=== PATIENT | female | born 1990 | race Caucasian/White ===

== ENCOUNTER 2022-04-12 15:38 | Outpatient (CLI) | payer OTHER, SELFPAY ==
--- NOTE | 2022-04-12 16:00 | CRLHL7_ITS ---
For Patients: As a result of the Century Cures Act, medical imaging exams and procedure reports are released immediately into your electronic medical record. You may view this report before your referring provider. If you have questions, please contact your health care provider. INDICATION: Dating and viability. LMP 02/12/2022. COMPARISON: None. TECHNIQUE: Real-time tavarez-scale imaging of the pelvis was performed. FINDINGS: Sonographic imaging demonstrates a single living intrauterine gestation. The embryo has a regular cardiac rate measuring 178 beats per minute. The embryo`s crown-rump length measurement of 2.4 cm corresponds to a gestational age of 9 weeks 1 day with a sonographic due date of 11/14/2022. There is a normal-appearing yolk sac. There is a developing placenta. No evidence of a perigestational hemorrhage. section scar in the lower uterine segment. The cervix appears closed. The right ovary measures 3.2 x 1.8 x 2.1 cm and the left ovary measures 3.8 x 2.5 x 3.3 cm. There is a 2.0 cm hypoechoic lesion in the right ovary which likely represents a corpus luteum. There is a 3.0 cm simple appearing cyst in the left ovary. No free fluid in the cul-de-sac. IMPRESSION: 1. Single living intrauterine gestation with crown rump length 2.4 cm which corresponds to a gestational age of 9 weeks 1 day with a sonographic due date of 11/14/2022. 2. The clinical gestational age by LMP is 8 weeks 3 days. 3. Corpus luteum in the right ovary and 3.0 cm simple cyst in the left ovary. Dictated by Gisele Guajardo MD @ 04/12/2022 6:04:41 PM (Electronically Signed)
[2022-04-12 18:21] LABS: Hemoglobin A1C* 5.1 % (0-5.6)
[2022-04-12 20:22] LABS: Free T4 Free Thyroxine* 1.01 ng/dL (0.70-1.85)
[2022-04-12 20:36] LABS: Hepatitis B Surface Antigen* Negative (Negative)
[2022-04-12 21:58] LABS: HIV 1/2/P24 Combo Screen* Negative (Negative)
[2022-04-12 22:06] LABS: Hepatitis C Virus Antibody* Negative (Negative)
[2022-04-14 10:14] LABS: Rapid Plasma Reagin (RPR) Non Reactive (Non Reactive)
[2022-04-14 16:19] LABS: Varicella-Zoster Virus Ab, IgG 873.7 IV
[2022-04-14 16:20] LABS: Rubella Antibody IgG 42.5 IU/mL
== END 2022-04-12 15:39 | disposition home or self-care (01) ==
PROVIDERS: PCP Physician Assistant Medical; Visit Provider Physician Assistant
DX: Z34.91 Encounter for supervision of normal pregnancy, unspecified, first trimester (principal); O34.81 Maternal care for other abnormalities of pelvic organs, first trimester; N83.11 Corpus luteum cyst of right ovary; Z3A.09 9 weeks gestation of pregnancy
CPT/HCPCS: 36415; 76817; 83036; 84439; 84443; 86592; 86703; 86762; 86787; 86803; 86850; 86900; 86901; 87086; 87340; 87491; 87591

== ENCOUNTER 2022-04-12 17:49 | Outpatient (CLI) | payer OTHER, SELFPAY | END 2022-04-12 17:50 | disposition home or self-care (01) | LOC: NFLDREF 04-22 08:35 | PROVIDERS: PCP Physician Assistant Medical; Visit Provider Physician Assistant | DX: Z34.81 Encounter for supervision of other normal pregnancy, first trimester (principal); Z3A.08 8 weeks gestation of pregnancy | CPT/HCPCS: 87491; 87591 ==

== ENCOUNTER 2022-06-03 13:13 | Outpatient (CLI) | payer OTHER, SELFPAY ==
[2022-06-08 08:44] LABS: Dating LMP CONF by US; Family Hx Neural Tube Defect No; Insulin Req Maternal Diabetes No; Maternal Age At Delivery 31.7 yr; Maternal Race Nonblack; Maternal Screen Interpretation Screen Neg; Maternal Weight 225.0 lbs.; MoM for AFP 1.31; Number of Fetuses Singleton; Patient's AFP 33 ng/mL; Smoking No
== END 2022-06-03 13:14 | disposition home or self-care (01) ==
PROVIDERS: PCP Physician Assistant Medical; Visit Provider Obstetrics & Gynecology
DX: Z34.92 Encounter for supervision of normal pregnancy, unspecified, second trimester (principal); Z3A.15 15 weeks gestation of pregnancy
CPT/HCPCS: 81511

== ENCOUNTER 2022-07-06 13:45 | Outpatient (CLI) | payer OTHER, SELFPAY ==
--- NOTE | 2022-07-06 14:00 | CRLHL7_ITS ---
For Patients: As a result of the Century Cures Act, medical imaging exams and procedure reports are released immediately into your electronic medical record. You may view this report before your referring provider. If you have questions, please contact your health care provider. INDICATION: Evaluate anatomy. COMPARISON: 04/12/2022 TECHNIQUE: Real time tavarez scale imaging of the fetus was performed as well as color Doppler analysis of the umbilical vessels. FINDINGS: Sonographic imaging demonstrates a single living intrauterine gestation. Fetus demonstrates a regular cardiac rate of 144 beats per minute. Fetus has a vertex position. The placenta lies anteriorly. On transvaginal imaging, the placental edge is located 6 millimeters from the internal cervical os. Amniotic fluid volume appears normal. Single deepest vertical pocket: 7.7 cm. The cervix is closed and measures 3.8 cm in length. The composite ultrasound gestational age is calculated at 20 weeks 6 days with an estimated sonographic due date of 11/17/2022. The estimated weight is 415 grams which lies at the 84th %. The following biometric measurements were obtained: Biparietal diameter: 4.7 cm/20 weeks 1 day 29th% Head circumference: 18.1 cm/20 weeks 4 days 38th% Abdominal circumference: 17.4 cm/22 weeks 2 days 91st% Femur length: 3.3 cm/20 weeks 3 days 35th% The HC/AC ratio measures: 1.04 range (1.06-1.25) On anatomic survey, there is a normal appearance of the cerebral ventricles, cavum septi pellucidi, cisterna magna and cerebellum. The nose, lips, and facial profile appear normal. The cervical, thoracic and lumbar spine are well visualized and appear normal. There is a normal four-chamber heart view and the left and right ventricular outflow tracts appear normal. The diaphragm and stomach appear normal. The kidneys and bladder also appear normal. There is a normal three-vessel cord and there is an eccentric cord insertion site located 3.0 cm from the placental edge. The four extremities appear normal. IMPRESSION: Concordant of clinical and sonographic dating. No intrinsic abnormalities noted on anatomic survey. Low lying anterior placenta with the placental edge located 6 millimeters from the internal cervical os. Dictated by Maxwell Puri MD @ 07/08/2022 8:38:11 AM (Electronically Signed)
== END 2022-07-06 13:46 | disposition home or self-care (01) ==
LOC: US 13:46
PROVIDERS: PCP Physician Assistant Medical; Visit Provider Obstetrics & Gynecology
DX: Z34.92 Encounter for supervision of normal pregnancy, unspecified, second trimester (principal); Z3A.20 20 weeks gestation of pregnancy
CPT/HCPCS: 76805; 76817

== ENCOUNTER 2022-08-29 09:33 | Outpatient (CLI) | payer OTHER, MEDICAID, SELFPAY ==
--- NOTE | 2022-08-29 09:45 | CRLHL7_ITS ---
For Patients: As a result of the Century Cures Act, medical imaging exams and procedure reports are released immediately into your electronic medical record. You may view this report before your referring provider. If you have questions, please contact your health care provider. INDICATION: f/u low-lying placenta COMPARISON: 07/06/2022 TECHNIQUE: Real time tavarez scale imaging of the fetus was performed. FINDINGS: Sonographic imaging demonstrates a single living intrauterine gestation. Fetus demonstrates a regular cardiac rate of 134 beats per minute. Fetus has a vertex position. The placenta lies anteriorly without evidence of placenta previa. The edge of the placenta is located 9.0 cm from the internal cervical os. Amniotic fluid volume appears normal and there is a single deepest vertical pocket: 5.6 cm. The cervix is closed and measures 3.7 cm. IMPRESSION: Anterior placenta edge is located 9.0 cm from the internal cervical os. Dictated by Maxwell Puri MD @ 08/29/2022 10:24:20 AM (Electronically Signed)
== END 2022-08-29 09:34 | disposition home or self-care (01) ==
PROVIDERS: PCP Physician Assistant Medical; Visit Provider Advanced Practice Midwife
DX: O44.43 Low lying placenta NOS or without hemorrhage, third trimester (principal)
CPT/HCPCS: 76816; 76817; 86592

== ENCOUNTER 2022-09-23 13:50 | Outpatient (CLI) | payer OTHER, MEDICAID, SELFPAY ==
[2022-09-23 16:44] LABS: Thyroid Stimulating Hormone* 0.939 uIU/mL (0.270-4.20)
== END 2022-09-23 13:51 | disposition home or self-care (01) ==
PROVIDERS: PCP Physician Assistant Medical; Visit Provider Obstetrics & Gynecology
DX: E03.9 Hypothyroidism, unspecified (principal)
CPT/HCPCS: 84443

== ENCOUNTER 2022-10-21 09:30 | Outpatient (CLI) | payer OTHER, SELFPAY ==
[2022-10-22 12:52] LABS: Strep B DNA Probe POSITIVE (Negative)
[2022-10-22 12:54] LABS: Strep B Pen/Amox Allergy No
== END 2022-10-21 09:31 | disposition home or self-care (01) ==
PROVIDERS: PCP Physician Assistant Medical; Visit Provider Obstetrics & Gynecology
DX: O36.63X0 Maternal care for excessive fetal growth, third trimester, not applicable or unspecified (principal); Z3A.37 37 weeks gestation of pregnancy
CPT/HCPCS: 76816; 87081; 87653

== ENCOUNTER 2022-10-27 05:48 | Inpatient (IN) | payer OTHER, MEDICAID, SELFPAY ==
[2022-10-27] VITALS (28 sets, daily range): BP systolic 83–119; BP diastolic 51–72; PULSE 64–108; RESP 14–18; TEMP 36.4–37.1; O2SAT 95–99; BMI 42.7
[2022-10-27 05:29] LABS: Amnisure Rom* POSITIVE
[2022-10-27 06:10] LABS: SARS PCR* Negative SARS-CoV-2 (Negative)
[2022-10-27 06:32] LABS: Hemoglobin* 13.6 gm/dL (12.0-16.0)
--- NOTE | 2022-10-27 06:41 | PM.OBHPCS1 ---
OB - H&P: HPI History of Present Illness Chief complaint: Maternity : 4 Para: 2 Date of last menstrual period: 02/12/22 Estimated date of delivery: 11/19/22 Gestational age based on last menstrual period: 36 Indications for induction: repeat section (PROM) Narrative: Jess Cunningham is a 32 year old female . She felt a gush of fluid from the vagina at 0300 this morning. At first, she thought she leaked urine. She subsequently had some bloody show, and came into triage. Amnisure test confirmed rupture of membranes. She denies contractions or abdominal pain. Her fetus remains active. The patient is a history of 2 prior deliveries, and was scheduled for a repeat section on 11/10/2022. She declines concurrent bilateral tubal ligation. History of Present Dating criteria: based on LMP care: good care Ultrasounds: normal 1st trimester US and normal mid trimester US Narrative: OB Problem List: 1. Obesity, BMI 37.4 2. History of x2, last March 2021 - Desires repeat [id number] on 11/10/22 at 38 5/7 weeks due to 3rd section, last time went into labor prior to 39 weeks as well 3. conceived on norethindrone 4. Asthma, mild intermittent. Rare albuterol use 5. Hypothyroidism - TSH/Free T4: 04/12/22: 1.2/1.01 -TSH on 09/23/22: 6. History of macrosomia. 9 lb and 9 lb 2 oz 7. Low lying placenta on Anatomy US -Pelvic rest recommended -Follow up US at 28 weeks (ordered):Resolved! Flu shot: 06/03/22 COVID vaccine: Not vaccinated, declined Tdap: 09/08/2022 Labs Blood type: A (+) positive Rubella: immune RPR/VDLR: nonreactive GBS status: positive HBsAG: negative Review of Systems Status of ROS: Reports: 10 or more systems reviewed and unremarkable except as noted in History and below Narrative: The patient has had some nausea earlier this week, possibly due to suspected gastroenteritis. She is worried about feeling nauseous while in the operating room. [facility] Medical History Asthma Ganglion cyst History of anaphylaxis Hypothyroidism Obesity Surgical History History of section Status post repeat low transverse section Social History Smoking Status: Former smoker Little interest or pleasure in doing things: not at all Feeling down, depressed, or hopeless: not at all Meds Home Medications and Allergies Home Medications Medication Instructions Recorded Confirmed Type albuterol 90 mcg/actuation aerosol 2 spray inhalation ONCE 04/12/22 10/27/22 History inhaler prenat.vits,deena,[id number] 1 tab PO QDAY 06/03/22 10/27/22 History cetirizine 10 mg capsule (Zyrtec) 10 mg PO QDAY 08/19/22 10/27/22 History Allergies Allergy/AdvReac Type Severity Reaction Status Date / Time Sulfa Antibiotics Allergy Mild Rash Uncoded 10/21/22 08:57 OB - H&P: Exam Physical Exam: Vital signs: Temp Pulse Resp BP Pulse Ox 98.4 F 104 H 16 118/72 95 10/27/22 05:15 10/27/22 05:15 10/27/22 05:15 10/27/22 05:15 10/27/22 05:15 Constitutional: Constitutional: no acute distress and obese Routine HEENT Exam: Head: Present atraumatic Eye: Present PERRL ENT: Present mucous membranes moist Routine Neck Exam: Neck: Present full ROM Routine Respiratory Exam: Respiratory: Present CTA bilaterally; Absent crackles, rhonchi or wheezes Routine Cardiovascular Exam: Cardiovascular: RRR Comments: No audible murmurs Detailed Labor and Delivery Exam: Patient Gravid: Yes Tachysystole: No Comments: No contractions Fetus (Single): Amniotic Membrane Status: SROM Amniotic Membrane Fluid Description: Clear Heart Rate Baseline: 150 Monitor Accelerations: Present Monitor Decelerations: None Nursing Home Variability: Moderate (6-25) Routine Extremities Exam: Extremities: Absent calf tenderness or pedal edema Routine Back/Spine/Pelvis Exam: Back/Spine: full ROM Routine Skin Exam: Present intact Routine Neurological Exam: Present alert and oriented X3 Routine Psychiatric Exam: Present normal affect OB - Results Labs Labs: Short CBC 10/27/22 Range/Units 06:25 Hgb 13.6 (12.0-16.0) gm/dL Assessment and Plan Assessment and plan (1) Premature rupture of membranes (PROM), delivered: Status: Acute (2) History of section complicating : Status: Acute Plan 1. Patient will be admitted to the center. 2. Informed consent was obtained for repeat section under regional analgesia. The patient is okay for anesthesia. The patient declines concurrent bilateral tubal sterilization. 3. Ondansetron for nausea as needed. 4. COVID screen obtained, negative. Hemoglobin type and screen to be drawn. 5. Preoperative orders will be entered in to the EMR.
[2022-10-27 07:09] LABS: Hematocrit 39.9 % (33.0-51.0); Mean Corpuscular HGB Conc 35 gm/dL (32-36); Mean Corpuscular Hemoglobin 30 pg (26-34); Mean Corpuscular Volume 88 fL (80-100); Platelet Count* 131 K/uL (140-440); Red Blood Count 4.55 m/uL (4.00-5.20); White Blood Count* 7.92 K/uL (4.50-11.00)
[2022-10-27 07:10] LABS: Basophils Percent Auto 0.1 % (0.0-3.0); Eosinophils Percent Auto 0.4 % (0.0-7.0); Immature Granulocytes Pct Auto 0.1 %; Lymphocytes Percent Auto 19.7 % (20-44); Monocytes Percent Auto 6.9 % (0.0-11.0); Neutrophils Absolute Auto 5.76 K/uL (1.7-7.0); Neutrophils Percent Auto 72.8 % (42.0-72.0)
[2022-10-27 07:11] LABS: Basophils Absolute Auto 0.01 K/uL (0.00-0.30); Eosinophils Absolute Auto 0.03 K/uL (0.00-0.50); Immature Granulocytes Abs Auto 0.01 K/uL (0.00-0.30); Lymphocytes Absolute Auto 1.56 K/uL (0.90-2.90); Monocytes Absolute Auto 0.55 K/UL (0.00-0.90); Slide Review Reflex No
[2022-10-27 07:12] LABS: RDW Coefficient of Variation % 13.6 % (11.5-15.5)
[2022-10-27] MEDS: AZITHROMYCIN 500 MG in 0.9 % SODIUM CHLORIDE 250 ml 250 ML 255 MG IVPB (07:20)
[2022-10-27] MEDS: CEFAZOLIN 1 GM inj 3 GM IVP (07:20)
[2022-10-27] MEDS: LACTATED RINGERS 1000 ML 1,000 ML 125 ML IV (07:45)
[2022-10-27] MEDS: KETOROLAC 30 MG/ML inj IVP ×3 (07:55→20:44)
--- NOTE | 2022-10-27 07:55 | W.ANESCHARGE ---
Anesthesia Charges Start Date/Time Anesthesia Start Date: 10/27/22 Anesthesia Start Time: 07:03 Stop Date/Time Anesthesia Stop Date: 10/27/22 Anesthesia Stop Time: 08:31 Summary Emergency: MDA
--- NOTE | 2022-10-27 08:23 | P.PCN_ITS ---
Procedure Note Time Seen by Provider: 08: Date Seen: 10/27/22 Date of procedure: 10/27/22 Will [facility] bill your pro fee for this procedure?: Yes Anesthesia: regional Surgeon: Anne Alas MD
--- NOTE | 2022-10-27 08:23 | PM.PROC ---
Procedure Note Time Seen by Provider: 08: Date Seen: 10/27/22 Date of procedure: 10/27/22 Will [facility] bill your pro fee for this procedure?: Yes Anesthesia: regional Surgeon: Anne Alas MD
--- NOTE | 2022-10-27 08:38 | W.PM.NB ---
Nerve Block Nerve Block Time Seen by Provider: 08:21 Date Seen: 10/27/22 Type of block requested by surgeon for post-operative analgesia: TAP Side: bilateral Time out performed: Yes Verification of patient name: Yes Verification of date of : Yes Site marking: site marked Name of person performing procedure: Shaka Continuous monitoring Was continuous monitoring of O2 sat, B/P, groundwater monitoring technician, recorded every 15 minutes?: Yes Procedure Checklist: sterile prep, needles and gloves Ultrasound guided. Images saved: Yes Medications given in 5ml increments after negative aspiration: Marcaine %: 0.25 mL: 30 Needle gauge: 20 and Exparel mL: 10 Patient tolerated procedure well: Yes Additional comments: Needle noted adjacent to nerve Block Charges Block Charge (with Pro Fee): TAP Bilateral Use of Ultrasound Machine for Block: Yes- US Guidance/pain block
--- NOTE | 2022-10-27 08:39 | W.ANESCHARGE ---
Anesthesia Charges Start Date/Time Anesthesia Start Date: 10/27/22 Anesthesia Start Time: 07:03 Stop Date/Time Anesthesia Stop Date: 10/27/22 Anesthesia Stop Time: 08:31 Summary Emergency: [employer] SAL[employer]OCIATE
[2022-10-27] MEDS: LACTATED RINGERS 1000 ML 1,000 ML 525 ML IV (15:46)
[2022-10-28] VITALS (10 sets, daily range): BP systolic 99–109; BP diastolic 62–70; PULSE 84–91; RESP 16–18; TEMP 36.6–37.1; O2SAT 95–97
[2022-10-28] MEDS: KETOROLAC 30 MG/ML inj IVP ×3 (02:45→14:56)
[2022-10-28 07:14] LABS: Hemoglobin* 11.7 gm/dL (12.0-16.0)
--- NOTE | 2022-10-28 09:04 | PM.OBPNCS1 ---
OB - PN: A/P Assessment and Plan (1) Premature rupture of membranes (PROM), delivered: Status: Resolved (2) History of section complicating : Status: Resolved Plan Plan: routine postop care Comments: Assessment/Plan G 4 P 3 status post uncomplicated repeat . 1. ?Continue route PP cares 2. ?. ?May see if desired 3. ?Anticipate discharge home tomorrow or the following day per pt preference OB - PN: Subj Subjective Time Seen by Provider: 09:05 Date Seen: 10/28/22 Interval history: Jess is a 32 y.o. who was admitted to [facility] for PROM, repeat . ?She had an uncomplicated . ? Patient comments: no complaints [place] status: [place] feeding status: exclusively Narrative: The patient feels well. ?The pain is well controlled with current medications. ?She has no new complaints. ?She is breast feeding and reports things are going well.? the patient has done well.? Vitals have been stable.? She has remained afebrile.? Has a good appetite, is tolerating a general diet. ?Her catheter is still in at this time, and should be removed this morning.? She is not passing gas and has not had a bowel movement.? She is ambulating and denies any dizziness.? Has Small amount of rubra lochia. OB - PN: Obj Exam Physical Exam: Vital signs: Temp Pulse Resp BP Pulse Ox O2 Del Method 98.8 F 89 16 104/68 95 10/28/22 08:00 10/28/22 08:00 10/28/22 08:00 10/28/22 08:00 10/28/22 08:00 10/28/22 08:00 Narrative: VSS. Afebrile GENERAL APPEARANCE: ?normal affect, alert, no distress MOOD: ?appropriate HEENT: normocephalic, neck supple, full ROM CHEST: ?Symmetrical chest wall movement. ?Normal respiratory effort. ?Clear to auscultation HEART: ?regular rate and rhythm ABDOMEN: ?soft, non-tender. Uterine fundus is firm, 1 above Umbilicus, Midline and is appropriate for the stage of recovery. ?Bowel sounds present. EXTREMITIES: ?normal and no edema SKIN: warm, dry. Dressing on, clean/dry/intact No signs of infection noted. Urinary Catheter Management: goodman: Cath placed during this visit: yes Urethral indwelling: Yes Reason for continuing: surgical procedure Insertion date: 10/27/22 Insertion time: 07:15 OB - PN: Obj Data Labs Labs: Laboratory Results - last 24 hr 10/27/22 10/28/22 06:25 07:01 Hgb 11.7 L Blood Type A Positive Antibody Screen NEGATIVE
[2022-10-28] MEDS: IBUPROFEN 600 MG TABLET PO (19:43)
[2022-10-29] MEDS: ACETAMINOPHEN 500 MG TABLET 1000 MG PO ×2 (00:58→07:36)
[2022-10-29] MEDS: IBUPROFEN 600 MG TABLET PO ×2 (04:20→11:18)
[2022-10-29 04:23] VITALS: BP 102/63; PULSE 77; RESP 16; TEMP 36.9; O2SAT 95
[2022-10-29] MEDS: DOCUSATE SODIUM 100 MG CAPSULE PO (04:26)
[2022-10-29 07:48] VITALS: BP 106/72; PULSE 77; RESP 16; TEMP 36.6; O2SAT 97
--- NOTE | 2022-10-29 08:50 | P.DS_ITS ---
DS: Providers Provider Time Seen by Provider: 08:50 Date Seen: 10/29/22 Date of admission: 10/27/22 05:48 Primary care physician: Alphonso Servin PA-C Admitting Clinician: Soledad Cee MD Attending Physician on discharge: Soledad Cee MD Exam Narrative: Exam Narrative: Physical exam: General: No acute distress Psych: Alert and oriented x3, full affect HEENT: Normocephalic, atraumatic Heart: Regular rate and rhythm, no murmur rub or gallop Lungs: Clear to auscultation bilaterally Abdomen: Normoactive bowel sounds, soft, no tenderness. Silver dressing in place Skin: No lesions or rashes Lower extremities: +1 bilateral edema Pelvic exam: Light lochia Const: Vital Signs, click to edit/add: Vital Signs - 24 hr 10/28/22 15:54 10/28/22 21:09 10/29/22 04:23 Temperature 98.1 F 98 F 98.4 F Pulse Rate [Blood Pressure Cuff] 85 91 77 Respiratory Rate 16 16 16 Blood Pressure [Le ft Arm] 104/62 109/70 102/63 Pulse Oximetry 97 96 95 Oxygen Delivery Me thod Room Air Room Air Room Air 10/29/22 07:48 Temperature 97.9 F Pulse Rate [Blood Pressure Cuff] 77 Respiratory Rate 16 Blood Pressure [Le ft Arm] 106/72 Pulse Oximetry 97 Oxygen Delivery Me thod Room Air OB - DS: Summary Hospital Course Hospital Course: The patient is a 32 year old at 36w weeks gestation that was admitted to the [facility] on 10/27/22 for PROM in the setting of 2 previous c/s. She had an uncomplicated repeat delivery. She delivered a viable female infant. She is breast feeding. the patient has done well. Overnight patient had no complaints. Her pain is well controlled on oral pain medications. She is tolerating a regular diet. She has passed flatus. She is ambulating without difficulty. Lochia is scant. She is urinating without goodman. Patient denies chest pain, SOB, n/v, headache, RUQ pain, vision changes, dizziness. Postoperative Review: - Admitted for: PROM - Surgical procedure: Repeat c/s - Skin incision: Pfannenstiel - Closure: sutures - Estimated blood loss: 438 mL - Intraoperative Complications: none - Urine output: adequate - Preop Hgb: 13.6 - Postop Hgb: 11.7 Hypothyroidism - TSH/Free T4: 04/12/22: 1.2/1.01 Postoperative care: - Diet: Advance as tolerated - Fluid: Encourage oral intake - Activity: Encourage ambulation and incentive spirometry - Pain: Oxy, Tylenol and Ibuprofen - DVT prophylaxis: SCDs and TEDs when not ambulating Discharge Planning - Contraception: Undecided. COCP vs Mirena (this was conceived on norethindrone) - Follow Up: follow-up in 2 and 6 weeks in clinic Baby's Status - Fetus: 8, 8, 6 lb 7 oz, female - Location: Bedside Dispo: Patient is POD#2. Stable and appropriate for discharge Peripartum Data Procedures: Procedures Operation Date: 10/27/22 07:00 Actual Procedure Side Surgeon p Section Soledad Cee MD Stout Infant Gender: Female Time Spent with Patient Time attestation: Total time spent providing and/or coordinating discharge services: Discharge Plan Discharge Disposition: Home, Self-Care Date of Admission: 10/27/22 05:48 Attending Provider on Discharge: Martina Jenkins MD Primary Care Provider: Alphonso Servin Condition: Stable Anticipated Discharge Date/Time: 10/29/22 18:00 Discharge Medications: New docusate sodium 100 mg Capsule 100 mg PO BID PRN (Reason: constipation) Qty: 100 0RF ibuprofen 600 mg Tablet 600 mg PO Q6H PRN (Reason: Pain) Qty: 30 0RF oxycodone 5 mg Tablet 5 mg PO 3XD PRN (Reason: Pain) Qty: 21 0RF Continued prenat.vits,deena,nsn-jgjx-dnkal Tablet 1 tab PO QDAY Zyrtec 10 mg capsule 10 mg PO QDAY albuterol 90 mcg/actuation aerosol 2 spray inhalation ONCE levothyroxine 50 mcg tablet 50 mcg PO DAILY Qty: 90 3RF Discharge Orders: Discharge Order (Routine); Ordered 10/29/22 Ordered By: Martina Jenkins Patient Education: (DC) Additional Instructions: ACTIVITY RESTRICTIONS: * Nothing vaginally for 6 weeks: no tampons/intercourse * No driving while taking narcotic pain medication during the day. 1-2 weeks. Okay to be the passenger anytime. * Lifting restriction: Maximum of 20 pounds for 6 weeks. * High impact or core exercises: 6 weeks. * Submerge the incision in water (bath/pool/santoro): 2 weeks. * Off of work/school for a minimum of 8 weeks NO RESTRICTIONS for: * Walking * Going up/down stairs * Showering Symptoms to report to doctor: -Bleeding that saturates more than one pad per hour ?-Passing clots larger than the size of a golf ball ?-Pain not relieved by prescribed medication ?-Fever above 100.4 degrees Fahrenheit ?-A foul vaginal odor ?-Difficulty in emotions, mood and functions ?-Thoughts of hurting yourself and/or ?-Painful, reddened area in your breast ?-Any drainage, redness or tenderness in your IV/epidural site ?-Severe headache that doesn't improve after taking medications ?-Changes in vision, including temporary loss of vision, blurred vision, and/or light sensitivity ?-Upper abdominal pain (usually under ribs on the right side) ?-Decrease in urination or painful, frequent urinating ?-Chest pain ?-Shortness of breath ?-Tenderness or pain with redness and/swelling in the calf(s) of your leg Follow-up: [facility]. [facility] to remove your dressing: incision check. 2. A 6 week visit for an annual physical exam. consultation services are available to all mothers and babies for the first year after delivery.? To make an appointment, please call [phone]. Discharge Diet: Regular Follow Up Appointments: [facility] [Provider Group] Alphonso Servin PA-C [Primary Care Provider] - Forms: [facility] Info Instructions
== END 2022-10-29 11:57 | disposition home or self-care (01) | DRG 788 ==
LOC: OB OUT 05:48 → OB 05:48
PROVIDERS: Obstetrics & Gynecology; Admitting Provider Obstetrics & Gynecology; PCP Physician Assistant Medical; Visit Provider Obstetrics & Gynecology
PROC: 10D00Z1 Extraction of Products of Conception, Low, Open Approach (ICD-10-PCS; CPT 59514; principal; 2022-10-27 06:45)
DX: O34.211 Maternal care for low transverse scar from previous cesarean delivery (principal); Z37.0 Single live birth; Z3A.36 36 weeks gestation of pregnancy; O99.824 Streptococcus B carrier state complicating childbirth; O99.214 Obesity complicating childbirth; E66.9 Obesity, unspecified; E03.9 Hypothyroidism, unspecified; O99.284 Endocrine, nutritional and metabolic diseases complicating childbirth
CPT/HCPCS: 01961; 36415; 76942; 84112; 85018; 85025; 86850; 86900; 86901; 87635; 99140; A9270; C9290; J0456; J0690; J1100; J1885; J2274; J2370; J2405; J2590; J3490; J7050; J7120

== ENCOUNTER 2023-11-08 16:07 | Outpatient (CLI) | payer BC, OTHER, SELFPAY | END 2023-11-08 16:08 | disposition home or self-care (01) | LOC: LKVREF 16:08 | PROVIDERS: PCP Physician Assistant Medical; Visit Provider Emergency Medicine | DX: E03.9 Hypothyroidism, unspecified (principal); E66.9 Obesity, unspecified | CPT/HCPCS: 84443 ==

== ENCOUNTER 2024-06-12 15:19 | Outpatient (CLI) | payer OTHER, SELFPAY ==
--- OUTSIDE RECORDS SUMMARY | 2024-06-12 15:22 | XMS_ITS | Referral Summary ---
Author Organization [place] Address [address] [place] [address] Care Team Providers Care Journeyman Powerhouse Operator Name Role Phone Clinic, [facility] Primary Care Provider Allergies Active Allergy Reactions Criticality Noted Date Comments Sulfa Antibiotics 02/18/2017 Medications Levothyroxine Sodium (SYNTHROID PO) Activ e EPINEPHrine 0.3 MG/0.3ML injection Inject 0.3 mLs (0.3 mg) into the muscle once as needed for anaphylaxis 0.6 mL 1 7 Active EPINEPHrine (EPIPEN/ADRENAC LICK/OR ANY BX GENERIC EQUIV) 0.3 MG/0.3ML injection 2-pack Inject 0.3 mLs (0.3 mg) into the muscle once as needed for anaphylaxis 0.6 mL 1 8 Active Resolved Problems Problem Noted Date Diagnosed Date Resolved Date Pain in joint, lower leg 07/25/2007 Other affections of shoulder region, not elsewhere classified 09/13/2006 01/11/2007 Pain in joint, shoulder region 09/13/2006 01/11/2007 Sprain and strain of shoulder and upper arm 11/23/2005 01/12/2006 Overview (05/14/2015): Problem list name updated by automated process. 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 Gender Identity Not on file Sexual Orientation Not on file Last Filed Vital Signs Vital Sign Reading Time Taken Comments Blood Pressure 104/61 11/10/2017 10:30 PM CDT Pulse 116 11/10/2017 8:24 PM CDT Temperature 36.4 ??C (97.6 ??F) 11/10/2017 8:24 PM CD T Respiratory Rate 22 11/10/2017 8:24 PM CDT Oxygen Saturation 96% 11/10/2017 10:30 PM CDT Inhaled Oxygen Concentration - - Weight - - Height - - Body Mass Index - - Plan of Treatment Not on file Insurance [facility] OUT OF STATE / Care Teams Journeyman Powerhouse Operator Relationship Specialty Start Date End Date Clinic, [place] [address] PCP - General 11/10/17
--- OUTSIDE RECORDS SUMMARY | 2024-06-12 15:22 | XMS_ITS | Clinical Summary ---
Author Organization [place] Address [address] 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
--- OUTSIDE RECORDS SUMMARY | 2024-06-12 15:22 | XMS_ITS | Clinical Summary ---
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 as needed for exercise 1 Inhaler 1 01/07/2010 Active naphazoline-pheniram ine (NAPHCON-A) 0.025-0.3 % ophthalmic solution Place 1 Drop into both eyes 4 times daily if needed for Eye Irritation. 1 Bottle 0 01/07/2010 Active Active Problems Problem Noted Date Diagnosed Date Reactive airway disease 01/07/2010 Immunizations Name Administration Dates Next Due DTP-HIB 1991,1991,1991 DTaP 03/20/1996,11/18/1992 Hepatitis A (Peds) 10/24/2007,03/28/2007 Hepatitis B (Peds) 03/15/1996,09/05/1995, 995 Hib Conjugate, Unspecified 06/26/1992,,1991,04/17 Human Papilloma Virus Vaccine 11/17/2006, 006,05/24/2006 Influenza A (H1N1), Inactiva mansoor (Age >=3 Years) 11/10/2009 Austrian Encephalitis 12/08/2009,11/10/2009 MMR 10/23/2002,06/26/1992 Meningococcal Vaccine (Menactra) 04/13/2006 Oral Polio Vaccine 03/20/1996, 3,1991,04/17 Td (Age >=7 Years) 10/23/2002 Tuberculin (PPD) 02/26/1992 Typhoid (injectable) 11/10/2009 Varicella Vaccine 1991 Family History Medical History Relation Name Comments Good Health Father Good Health Mother Relation Name Status Comments Father Mother Social History Tobacco Use Types Packs/Day Years Used Date Smoking Tobacco: Never Alcohol Use Standard Drinks/Week Comments No 0 (1 standard drink = 0.6 oz pur e alcohol) Sex and Gender Information Value Date Recorded Sex Assigned at Not on file Gender Identity Not on file Sexual Orientation Not on file Obstetrics History Last Filed Vital Signs Vital Sign Reading Time Taken Comments Blood Pressure 133/84 06/22/2023 6:34 PM ENGINEER PROCESS Pulse 106 06/22/2023 6:34 PM ENGINEER PROCESS Temperature 37.2 ??C (98.9 ??F) 06/22/2023 6:34 PM CS T Respiratory Rate 20 06/22/2023 6:34 PM ENGINEER PROCESS Oxygen Saturation 98% 06/22/2023 6:34 PM ENGINEER PROCESS Inhaled Oxygen Concentration - - Weight 99.8 kg (220 lb) 06/22/2023 6:34 PM ENGINEER PROCESS Height 165.1 cm (5' 5) 06/22/2023 6:34 PM ENGINEER PROCESS Body Mass Index 36.61 06/22/2023 6:34 PM ENGINEER PROCESS Plan of Treatment Health Maintenance Due Date Last Done Comments Tdap 2002 Depression screening for age 12+ 2003 HIV for age 15-65 2006 BMI (ht and wt on same day) for age 18+ 2009 Hepatitis C screening for ag e 18-79 2009 Tetanus booster 10/23/2012 10/23/2002 Pap test for age 21-65 08/25/2023 1, 01/07/2010 COVID-19 vaccine series ( season) 2024 Influenza for age 9-49 04/14/2024 11/10/2009 Pneumococcal series for age 6-64 Aged Out No longer eligible b ased on patient's age to complete this topic Procedures Procedure Name Priority Date/Time Associated Diagnosis Comments FLANGING OPERATOR THIN PREP PAP SCREEN IMAGED Routine 08/25/2020 11:15 AM ENGINEER PROCESS from Last 3 Months or Most Recently Relevant to Health Maintenance Results * FLANGING OPERATOR THIN PREP PAP SCREEN IMAGED (08/25/2020 11:15 AM ENGINEER PROCESS) Case Report Gynecologic Cytology Report ? Case: [id number] ? Authorizing Provider: ??Jolie Muñoz, JASON ? Collected: ? 08/25/2020 1115 ? Ordering Location: ? [facility] ?Received: ?08/25/2020 1741 ? First Screen: ?Esther Castillo ? Specimen: ?FLANGING OPERATOR ThinPrep Vial Screening, Cervical/Vaginal ? 09/01/2020 12:12 PM ENGINEER PROCESS [facility] INTERPRETATION/ RESULT NEGATIVE FOR INTRAEPITHELIAL LESION OR MALIGNANCY (NIL) (none) 09/01/2020 12:12 PM ENGINEER PROCESS [facility] IMEN ADEQUACY Satisfactory for evaluation Endocervical component present 09/01/2020 12:12 PM ENGINEER PROCESS [facility] HPV REQUEST HPV if ASCUS 09/01/2020 12:12 PM ENGINEER PROCESS [facility] Date of LMP 06/15/2020 09/01/2020 12:12 PM ENGINEER PROCESS [facility]- [facility]AL [facility] Menstrual Status 09/01/2020 12:12 PM ENGINEER PROCESS [facility] Additional Information 09/01/2020 12:12 PM ENGINEER PROCESS [facility] Comment: Interpreted at [facility] - [address], [place] [address] Automated Review Successful 09/01/2020 12:12 PM ENGINEER PROCESS [facility] Comment:Specimen processed s uccessfully by automated medical photographer device, ThinPrep Imaging System, [employer] Note The pap test is a screening technique, not a diagnostic procedure. It is used primarily to screen for squamous cancers and precursor lesions. Published studies have shown that it is subject to both false negative and false positive results. The pap test should not be used as the sole means to diagnose or exclude pre-malignant and malignant lesions. 09/01/2020 12:12 PM ENGINEER PROCESS [facility] Other (Cervical/Vagina l) 08/25/2020 11:15 AM ENGINEER PROCESS 08/25/2020 5:41 PM ENGINEER PROCESS Jolie Muñoz CNM PATHOLOGY/CYTOLOGY [facility] [address] [place] [address], [place] from Last 3 Months or Most Recently Relevant to Health Maintenance Care Teams Cooling Tower Operator Relationship Specialty Start Date End Date Unknown, Doctor . PCP - General Unknown Physician Specialty 07/24/12
--- OUTSIDE RECORDS SUMMARY | 2024-06-12 15:23 | XMS_ITS | Continuity of Care Document ---
Author Name [facility] Organization [facility] Care Team Providers Care Director Of Nuclear Medicine Name Role Phone [facility] Unavailable Unavailable Problems Combined list of problems from Department of Defense and Veterans Affairs facilities. It does not include entries that were removed or entered in error. Problem Status Onset Date Problem Type Date of Resolution Comments Source Hypermetropia, bilateral Active Condition [facility] Regular astigmatism, bilateral Active Condition DoD post-term - antepartum cond or prior compl deliver Active Condition DoD Patient Counseling: Active Condition Do D visit for: examination Inactive Condition DoD Unconfirmed Inactive Condition DoD Cervical Pap Smear Inactive Condition Do D cystitis Inactive Condition [facility] refractive error - myopia Active Condition [facility] pharyngitis acute Inactive Condition [facility] pharyngitis Inactive Condition [facility] spontaneous Inactive Condition [facility] Supervision Of Normal First Inactive Condition [facility] nausea with vomiting Inactive Condition [facility] Test Inactive Condition [facility] female infertility Active Condition [facility] Inquiry And Counseling: Family Planning Active Condition [facility] asthma Active Condition [facility] urinary tract infection Inactive Condition [facility] visit for: screening exam for malignant neoplasm cervix Inactive Condition [facility] routine gynecological exam Inactive Condition DoD Allergies, Adverse Reactions, Alerts Combined list of allergies from Department of Defense and Veterans Affairs facilities. It does not include entries that were removed or entered in error. Substance Category Reaction Severity Reaction type Status Date Reported Comments Source SULFA-DRUGS {Cla } Drug allergy (disorder) Rash active 07/25/2011 [place] Immunizations Combined list of available immunizations from the Department of Defense and Veterans Affairs facilities. Immunization Series Date Given Administered By Site Reaction Lot Number CVX Code Drug Seed And Fertilizer Specialist Status Comments Source influenza, injectable, quadrivalent 2018 BIBIHOW BRYANT () Not Given influenza , injectabl e, quadrival ent [facility] influenza, injectable, quadrivalent, preservative free 2016 BIBIHOW BRYANT () Not Given influenza , injectabl e, quadrival ent, preservat ashli free DoD Influenza, injectable, quadrivalent, preservative free 1 2015 ELIE DUMONT [id number] [address] [place] [address] (SKB) complet ed Influenza , injectabl e, quadrival ent, preservat ashli free DoD tuberculin skin test; purified protein derivative solution, intradermal 0 2014 REYNALDO KENT [id number] [place] [facility] ([facility]) complet ed tuberculi n skin test; purified protein derivativ e solution, intraderm al DoD tetanus toxoid, reduced diphtheria toxoid, and acellular pertu is vaccine, adsorbed 1 2013 Unknown, Provider [id number] 115 [facility] ([facility]) complet ed tetanus toxoid, reduced diphtheri a toxoid, and acellular pertussis vaccine, adsorbed DoD Influenza, injectable, quadrivalent, preservative free 1 2013 Unknown, Provider [id number] 150 [facility] ([facility]) complet ed Influenza , injectabl e, quadrival ent, preservat ashli free DoD Cymro Encephalitis vaccine for intramuscular administratio n 1 2009 134 Transcribed (TRS) complet ed Cymro Encephali tis vaccine for intramusc ular administr ation DoD typhoid Vi capsular polysaccharid e vaccine 0 2009 101 Transcribed (TRS) complet ed typhoid Vi capsular polysacch aride vaccine DoD Cymro Encephalitis vaccine for intramuscular administratio n 2 2009 134 Transcribed (TRS) complet ed Cymro Encephali tis vaccine for intramusc ular administr ation DoD hepatitis A vaccine, pediatric/ado lescent dosage, 2 dose schedule 1 2007 83 Transcribed (TRS) complet ed hepatitis A vaccine, pediatric /adolesce nt dosage, 2 dose schedule DoD hepatitis A vaccine, pediatric/ado lescent dosage, 2 dose schedule 2 2006 83 Transcribed (TRS) complet ed hepatitis A vaccine, pediatric /adolesce nt dosage, 2 dose schedule DoD human papilloma virus vaccine, quadrivalent 1 2006 62 Transcribed (TRS) complet ed human papilloma virus vaccine, quadrival ent DoD human papilloma virus vaccine, quadrivalent 2 2005 62 Transcribed (TRS) complet ed human papilloma virus vaccine, quadrival ent DoD human papilloma virus vaccine, quadrivalent 2 2005 62 Transcribed (TRS) complet ed human papilloma virus vaccine, quadrival ent DoD meningococcal oligosacchari de (groups A, C, Y and W-135) diphtheria toxoid conjugate vaccine (MCV4O) 0 2005 136 Transcribed (TRS) complet ed meningoco ccal oligosacc haride (groups A, C, Y and W-135) diphtheri a toxoid conjugate vaccine (MCV4O) DoD measles, mumps and rubella virus vaccine 1 2002 03 Transcribed (TRS) complet ed measles, mumps and rubella virus vaccine DoD tetanus toxoid, unspecified formulation 0 2002 112 Transcribed (TRS) complet ed tetanus toxoid, unspecifi ed formulati on DoD trivalent poliovirus vaccine, live, oral 1 1995 02 Transcribed (TRS) complet ed trivalent polioviru s vaccine, live, oral DoD diphtheria, tetanus toxoids and acellular pertu is vaccine 2 1995 20 Transcribed (TRS) complet ed diphtheri a, tetanus toxoids and acellular pertussis vaccine DoD hepatitis B vaccine, pediatric or pediatric/ado lescent dosage 1 1995 08 Transcribed (TRS) complet ed hepatitis B vaccine, pediatric or pediatric /adolesce nt dosage DoD hepatitis B vaccine, pediatric or pediatric/ado lescent dosage 2 1995 08 Transcribed (TRS) complet ed hepatitis B vaccine, pediatric or pediatric /adolesce nt dosage DoD hepatitis B vaccine, pediatric or pediatric/ado lescent dosage 2 1994 08 Transcribed (TRS) complet ed hepatitis B vaccine, pediatric or pediatric /adolesce nt dosage DoD trivalent poliovirus vaccine, live, oral 2 1992 02 Transcribed (TRS) complet ed trivalent polioviru s vaccine, live, oral DoD diphtheria, tetanus toxoids and acellular pertu is vaccine 3 1992 20 Transcribed (TRS) complet ed diphtheri a, tetanus toxoids and acellular pertussis vaccine DoD measles, mumps and rubella virus vaccine 2 1991 03 Transcribed (TRS) complet ed measles, mumps and rubella virus vaccine DoD Haemophilus influenzae type b vaccine, conjugate unspecified formulation 1 1991 17 Transcribed (TRS) complet ed Haemophil us influenza e type b vaccine, conjugate unspecifi ed formulati on DoD varicella virus vaccine 1 1991 21 Transcribed (TRS) complet ed varicella virus vaccine DoD diphtheria, tetanus toxoids and pertu is vaccine 1 1991 01 Transcribed (TRS) complet ed diphtheri a, tetanus toxoids and pertussis vaccine DoD Haemophilus influenzae type b vaccine, conjugate unspecified formulation 2 1991 17 Transcribed (TRS) complet ed Haemophil us influenza e type b vaccine, conjugate unspecifi ed formulati on DoD diphtheria, tetanus toxoids and pertu is vaccine 2 1990 01 Transcribed (TRS) complet ed diphtheri a, tetanus toxoids and pertussis vaccine DoD trivalent poliovirus vaccine, live, oral 2 1990 02 Transcribed (TRS) complet ed trivalent polioviru s vaccine, live, oral DoD Haemophilus influenzae type b vaccine, conjugate unspecified formulation 2 1990 17 Transcribed (TRS) complet ed Haemophil us influenza e type b vaccine, conjugate unspecifi ed formulati on DoD diphtheria, tetanus toxoids and pertu is vaccine 2 1990 01 Transcribed (TRS) complet ed diphtheri a, tetanus toxoids and pertussis vaccine DoD Haemophilus influenzae type b vaccine, conjugate unspecified formulation 2 1990 17 Transcribed (TRS) complet ed Haemophil us influenza e type b vaccine, conjugate unspecifi ed formulati on DoD Encounters Combined list of: 1) Encounters from Department of Veterans Affairs facilities going back up to thelast 18 months. 2) Encounters from the Department of Defense facilities going back up to 280 months. Location Location Details Encounter Type Encounter Number Reason For Visit Attending Provider ADM Date DC Date Status Disposition Source [facility] [place] OUTPATIENT [id number] well woman exam / pt req ALTA Verdin 03/02 Released w/o Limitations [facility] [place] [facility] [place] OUTPATIENT [id number] possibl e bladder infecti on ERICK HEREDIA 05/25 Released w/o Limitations [facility] [place] [facility] [place] OUTPATIENT [id number] bladder infecti on SUMAN RIZZO E 07/06 Released w/o Limitations [facility] [place] [facility] [place] OUTPATIENT [id number] fertili ty / prenata l consult ation ERICK HEREDIA 07/26 Released w/o Limitations [facility] [place] [facility] [place] TELE CONSULT [id number] blood work within 1-5 days of last cycle YULIANA SINGLETON 08/16 [facility] to [facility] [place] [facility] [place] OUTPATIENT [id number] f/u test result ERICK HEREDIA 10/10 Released w/o Limitations [place] [facility] [place] TELE CONSULT [id number] Notes Entered by: QUE MEADOWS 31 Oct 2011 0816 ------- ------- ------- ------- -- Pregnan cy test request ARISTEO MEADOWS 10/29 [facility] [place] [facility] [place] OUTPATIENT [id number] Notes Entered by: DALLAS NICOLAS W 21 Nov 2011 0958 ------- ------- ------- ------- -- OB intake KRISH BOWMAN 11/20 Released w/o Limitations [facility] [place] [facility] [place] OUTPATIENT [id number] Suspect ed UTI ANTONIO COTE 11/20 Released w/o Limitations [facility] [place] [facility] [place] OUTPATIENT [id number] Initial OB Exam ANTONIO COTE 12/11 Released w/o Limitations [place] [facility] [place] OUTPATIENT [id number] f/u ob 11 wks ANTONIO COTE 12/18 Released w/o Limitations [place] [facility] [place] TELE CONSULT [id number] Notes Entered by: DALLAS NICOLAS W 05 Jan 2012 1318 ------- ------- ------- ------- -- Lab test KRISH BOWMAN W 01/04 [place] Appointment [place] [facility] [place] TELE CONSULT [id number] Notes Entered by: BERNADINE ENGLE 27 Jan 2012 0716 ------- ------- ------- ------- -- Lab results BERNADINE ENGLE 01/25 [facility] for Appointment [facility] [place] [facility] [place] OUTPATIENT [id number] possibl e strep throat ANTONIO COTE 02/28 Released w/o Limitations [place] [facility] [place] TELE CONSULT [id number] Notes Entered by: ANTONIO SOTO 08 Mar 2012 1112 ------- ------- ------- ------- -- Test esults ANTONIO COTE 03/08 [facility] [place] [facility] [place] OUTPATIENT [id number] eye exam RAY ELLSWORTH 10/05 Released w/o Limitations [facility] [place] [facility] [place] OUTPATIENT [id number] possibl e uti ANTONIO COTE 12/25 Released w/o Limitations [place] [facility] [place] OUTPATIENT [id number] uti ANTONIO COTE 03/06 [place]ased w/o Limitations [place] [facility] [place] OUTPATIENT [id number] Possibl e UTI. STEPHANE YBARRA 05/06 Released w/o Limitations [facility] [place] [facility] [place] OUT[facility] [id number] STEPHANE DOUGLAS 06/07 Released w/o Limitations [facility] [place] [facility] [place] [facility] M04B RH Two) OUTPATIENT [id number] Notes Entered by: CODY TALBERT 15 Nov 2013 1013 ------- ------- ------- ------- -- walk in pregnan cy test NAVIN TALBERT 11/15 Released w/o Limitations [place] [facility] Two) [place] [facility] RH Thr) OUTPATIENT [id number] OB INTAKE [id number] [id number] DIXON RAY 11/27 Released with Work/Duty Limitations [place] [facility])([facility] 4C RHC Thr) [place] [facility])(Fanny gency Room) OUTPATIENT [id number] SHIRAZ HENDERSON 12/08 Released w/o Limitations [place] [facility])(Em ergency Room) [place] [facility])(Obst etrics T-Con) TELE CONSULT [id number] Notes Entered by: YOVANI ACKERMAN 16 Dec 2013 0835 ------- ------- ------- ------- -- edc10 dec had BRVB on , had interco urse monday night Rh + YOVANI ACKERMAN 12/16 Referred for Appointment [place] [facility])(Ob stetric s T-Con) [place] [facility])([facility] M04B RH Two) OUTPATIENT [id number] ob//ETIENNE Rashid 01/01 Released w/o Limitations [place] [facility])([facility] M04B RH Two) [place] [facility])([facility] - OB Clinic) OUTPATIENT [id number] 16wks [id number] HARINI IBANEZ L 02/10 Released w/o Limitations [place] [facility]) [place] [facility]) TELE CONSULT [id number] Notes Entered by: Taylor YANEZ 28 Mar 2014 0941 ------- ------- ------- ------- -- FANNY [id number] 14 36 09/20 possibl e UTI KARISHMA YANEZ 03/28 Released w/o Limitations [place] [facility]) [place] [facility]) OUTPATIENT [id number] fanny . 2 wks CORI PAREDES 04/03 Released w/o Limitations [place] [facility]) [place] [facility]) TELE CONSULT [id number] Notes Entered by: Alli DYSON 07 Apr 2014 0946 ------- ------- ------- ------- -- Urine culture results . DARIN DYSON 04/07 [place] [facility]) [place] [facility]) OUTPATIENT [id number] fanny .2 wks NEELIMA CRESPO 05/02 Released w/o Limitations [place] [facility]) [place] [facility]) OUTPATIENT [id number] fanny Jul SHIRAZ WOODWARD 06/04 Released w/o Limitations [place] [facility])([facility]) [place] [facility])([facility] M04C [facility] Thr) OUTPATIENT [id number] immuniz JAYE Gibbons 06/19 Released w/o Limitations [place] [facility])([facility] H M04C [facility] Thr) [place] [facility])([facility]) OUTPATIENT [id number] 36wk appt; edc 10 mb r SHIRAZ WOODWARD 06/24 Released w/o Limitations [place] [facility])([facility]) [place] [facility])([facility]) OUTPATIENT [id number] 38 wk fu edc jul 27 SHIRAZ WOODWARD 07/07 Released w/o Limitations [place] [facility])([facility]) [place] [facility])([facility]) OUTPATIENT [id number] 38wks fu edc 10[facility] ALLYN LANGSTON 07/16 Released w/o Limitations [place] [facility])([facility]) [place] [facility])([facility]) OUTPATIENT [id number] [address] ALLYN CARDONA 07/19 Released w/o Limitations [place] [facility])([facility]) [place] [facility]) OUTPATIENT [id number] [facility] CARLOS ENRIQUE YANG 07/24 Released w/o Limitations [place] [facility])([facility]) [place] [facility])([facility]) OUTPATIENT [id number] [facility] ALLYN CARDONA 07/24 Released w/o Limitations [place] [facility])([facility]) [place] ([facility])(Ante - in L&D) OUTPATIENT [id number] [facility] NEELIMA Nunn 07/25 Released w/o Limitations [place] ([facility])(An te-Part um in L&D) [place] [facility])([facility]) OUTPATIENT [id number] [facility] ALLYN CARDONA 07/28 Released w/o Limitations [place] [facility]) [facility] DIRECT TO MTF FROM OTHER THAN ER OR APU [id number] ALIDA PALOMINO 08/01 DISCHARGED HOME [facility] [place] [facility]) OUTPATIENT [id number] edc 10 [facility] r 14 ALLYN CARDONA 08/01 Immediate Referral [place]) [place])(Ante - in L&D) OUTPATIENT [id number] Notes Entered by: GLENDY WHEELER 01 Aug 2014 0931 ------- ------- ------- ------- -- pt says prep and induce labor ALIDA PALOMINO 08/01 Admitted [place] ([facility])(An te-Part um in L&D) [place] [facility]) OUTPATIENT [id number] B/P check KARISHMA YANEZ 08/06 [facility]ased w/o Limitations [place] [facility] [place] [facility] OB Clinic) OUTPATIENT [id number] deliver ed 20 [facility] r 14 ALIDA PALOMINO 09/19 Released w/o Limitations [place] [facility]) [place])([facility] M04B [facility] Two) TELE CONSULT [id number] Notes Entered by: KIN HERNANDEZ SA 22 Oct 2014 0913 ------- ------- ------- ------- [facility] [place] [facility])(AM H M04B [facility] Two) [place])([facility] Room) OUTPATIENT [id number] IKESHA ALBARADO 11/16 Released w/o Limitations [place] ([facility])( ergency Room) [place] [facility])([facility] R[facility] Two) OUTPATIENT [id number] ETIENNE Munoz 04/01 Released w/o Limitations [place] [facility])([place] [id number] RH Two) [place] [facility])([facility] RHC One) TELE CONSULT [id number] Notes Entered by: BERNARDA SANDS 06 Apr 2015 1010 ------- ------- ------- ------- -- NAL encount /03-15 at 05:49 BERNARDA SANDS 04/06 Referred for Appointment [place] [facility])([place] [id number] RH One) [place] [facility])([facility] Two) OUTPATIENT [id number] REYNALDO Davis 04/06 Released w/o Limitations [place] ([facility])([place] [id number] [facility] Two) [place] [facility])([facility] RH One) TELE CONSULT [id number] Notes Entered by: BERNARDA SANDS 08 Apr 2015 1106 ------- ------- ------- ------- -- NAL/urg ent care 015 at 15:43 BERNARDA SANDS 04/08 Referred for Appointment [place] ([facility])([place] [id number] RH One) [place] [facility])([facility] Two) TELE CONSULT [id number] Notes Entered by: ME ROME WOO 04 Dec 2015 0937 ------- ------- ------- ------- -- pt has possibl e strep throat BERNARDA SANDS 12/03 Other Not Elsewhere Classified [place] ([facility])([place] [id number] RH Two) [place] [facility])([address] Thr) TELE CONSULT [id number] Notes Entered by: ROSALINDA PEARCE 08 Dec 2015 1156 ------- ------- ------- ------- -- NAL URGENT CARE- SORE THROAT ROSALINDA CHOW 12/07 Referred for Appointment [place])(AM H 4C [facility] Thr) [place])([address] Fou) TELE CONSULT [id number] Notes Entered by: BERNARDA SANDS 12 Apr 2016 1046 ------- ------- ------- ------- -- NAL/urg ent care 016 at 05:23 BERNARDA SANDS 04/12 Referred for Appointment [place])(AM H 4D [facility] Fou) [place]) OUTPATIENT [id number] NICHO Carson INFECTI ON-ADVI CE NURSE TOLD TO PATTIK-IN TREMAINE FLORES 06/14 Released w/o Limitations [place] [facility]) [place] [facility])([address] Fou) TELE CONSULT [id number] Notes Entered by: BERNARDA SANDS 16 Jun 2016 1119 ------- ------- ------- ------- -- RAUL encount /11-0 at 15:08 BERNARDA SANDS 06/16 Referred for Appointment [place])(AM H 4D [facility] Fou) [place] [facility])([address] Two) TELE CONSULT [id number] Notes Entered by: SHER CLIFTON 18 Jun 2016 1120 ------- ------- ------- ------- -- CALL LEFT MESSAGE OVERDUE KAIN ARNOLD 06/18 Referred for Appointment [place] [facility])([facility] H M04B RHC Two) [place] [facility])([facility] M04C RHC Thr) OUTPATIENT [id number] PAP SMEAR JALEESA WHITLEYÁNGEL Vazquez 07/15 Released w/o Limitations [place] [facility])(AM H M04C RHC Thr) [place] [facility])([facility] M04C RHC Thr) TELE CONSULT [id number] Notes Entered by: PAULETTE WHITLEY 19 Jul 2016 1228 ------- ------- ------- ------- -- TSH NO MAYS 07/19 Referred for Appointment [place] [facility])(AM H M04C RHC Thr) [place] [facility])([facility] M04C RHC Thr) OUTPATIENT [id number] F/U FOR LABS GUTIERREZ NICHOLE Vazquez 07/25 Released w/o Limitations [place] [facility])(AM H M04C RHC Thr) [place] [facility])([facility] M04C RHC Thr) TELE CONSULT [id number] Notes Entered by: ROSALINDA PEARCE 09 Aug 2016 1117 ------- ------- ------- ------- -- NAL ENCOUNT ER- DIARRHE A/VOMIT ROSALINDA ZHOU 08/09 Referred for Appointment [place] ([facility])(AM H M04C RHC Thr) [place] [facility])([facility] M04C RHC Thr) OUTPATIENT [id number] f/u thyroid NICHOLE WHITLEY 09/12 Released w/o Limitations [place] ([facility])(AM H M04C RHC Thr) [place] [facility])([facility]o metry[facility]) OUTPATIENT [id number] KARISHMA PATTON 12/20 Released w/o Limitations [place] [facility])(Op tometry -[facility]) [place] [facility])([facility] M04C RHC Thr) TELE CONSULT [id number] Notes Entered by: PHUC JOHN 19 Jan 2017 0823 ------- ------- ------- ------- -- [facility] SHIRAZ JAVIER 01/19 Medication Refill Forwarded [place] [facility])(AM H [address] Thr) [place] [facility] [address] Thr) OUTPATIENT [id number] kurt francesca on NICHOLE WHITLEY 01/25 Released w/o Limitations [place] [facility])(AM H 4C RHC Thr) [place] [facility] RH Thr) TELE CONSULT [id number] Notes Entered by: PHUC JOHN 21 Feb 2017 0833 ------- ------- ------- ------- -- [facility] SHIRAZ JAVIER 02/21 Referred for Appointment [place]AM H [address] Thr) Procedures Combined list of: 1) Procedures from Department of Veterans Affairs facilities going back up to thelast 18 months, not all VA non-surgical procedures are included; 2) All procedures from the Department of Defense facilities. Procedure Procedure Type Code Date Perfomer Comments [facility] e SCREENING PAPANICOLAOU SMEAR; OBTAINING, PREPARING AND CONVEYANCE OF CERVICAL OR VAGINAL SMEAR TO LABORATORY 013 [facility] FUNDUS PHOTOGRAPHY WITH INTERPRETATION AND REPORT 013 [facility] INITIAL CARE VISIT (REPORT AT 1ST ENCOUN W HEALTH FISH STRAIGHTENER PROVIDING OBSTETRIC CARE. REPORT ALSO DATE OF VISIT &,IN A SEPARATE FIELD,THE DATE OF THE LAST MENSTRUAL PERIOD) 012 [facility] SCREENING PAPANICOLAOU SMEAR; OBTAINING, PREPARING AND CONVEYANCE OF CERVICAL OR VAGINAL SMEAR TO LABORATORY 011 [facility] TELE ASSESS & MGT SRV PROV QUAL NONPHYS HLTH CARE PRO TO EST PAT,PARENT,GUARD NOT ORIG REL ASSESS & MGT SRV PROV W/IN PREV 7 DAYS NOR LEAD ASSESS & MGT SRV/PX W/IN NXT 24 HR/SOON APT;5-10 MIN MED DIS 017 DoD DETERMINATION OF REFRACTIVE STATE 017 DoD TELE ASSESS & MGT SRV PROV QUAL NONPHYS HLTH CARE PRO TO EST PAT,PARENT,GUARD NOT ORIG REL ASSESS & MGT SRV PROV W/IN PREV 7 DAYS NOR LEAD ASSESS & MGT SRV/PX W/IN NXT 24 HR/SOON APT;5-10 MIN MED DIS 016 DoD SCREENING PAPANICOLAOU SMEAR; OBTAINING, PREPARING AND CONVEYANCE OF CERVICAL OR VAGINAL SMEAR TO LABORATORY DoD SKIN TEST; TUBERCULOSIS, INTRADERMAL 015 DoD SCREENING TEST OF VISUAL ACUITY, QUANTITATIVE, BILATERAL 015 DoD TELE ASSESS & MGT SRV PROV QUAL NONPHYS HLTH CARE PRO TO EST PAT,PARENT,GUARD NOT ORIG REL ASSESS & MGT SRV PROV W/IN PREV 7 DAYS NOR LEAD ASSESS & MGT SRV/PX W/IN NXT 24 HR/SOON APT;5-10 MIN MED DIS 015 DoD CARE VISIT () 015 DoD BLOOD PRESSURE MEASURED (CKD)(DM) 014 DoD OTHER DIAGNOSTIC PROCEDURES ON FETUS AND AMNION DoD EKG (SCALP) DoD MEDICAL INDUCTION OF LABOR DoD LOW CERVICAL SECTION DoD POSTOPERATIVE FOLLOW-UP VISIT, NORMALLY INCLUDED IN THE SURGICAL PACKAGE, INDICATE THAT EVALUATION & MANAGEMENT SERVICE WAS PERFORMED DURING A POSTOPERATIVE PERIOD REASON RELATED ORIGINAL PROCEDURE DoD POSTOPERATIVE FOLLOW-UP VISIT, NORMALLY INCLUDED IN THE SURGICAL PACKAGE, INDICATE THAT EVALUATION & MANAGEMENT SERVICE WAS PERFORMED DURING A POSTOPERATIVE PERIOD REASON RELATED ORIGINAL PROCEDURE 014 DoD DELIVERY ONLY DoD NON-STRESS TEST DoD SUBSEQ CARE VISIT () [EXCLS:PATIENTS WHO ARE SEEN FOR A CONDITION UNREL TO / CARE (EG,AN UP RESPIR INFECT;PATIENTS SEEN FOR CONSULTATION ONLY,NOT FOR CONT CARE)] 014 DoD NON-STRESS TEST 014 DoD NON-STRESS TEST DoD NON-STRESS TEST 014 DoD SUBSEQ CARE VISIT () [EXCLS:PATIENTS WHO ARE SEEN FOR A CONDITION UNREL TO / CARE (EG,AN UP RESPIR INFECT;PATIENTS SEEN FOR CONSULTATION ONLY,NOT FOR CONT CARE)] [facility] SUBSEQ CARE VISIT () [EXCLS:PATIENTS WHO ARE SEEN FOR A CONDITION UNREL TO / CARE (EG,AN UP RESPIR INFECT;PATIENTS SEEN FOR CONSULTATION ONLY,NOT FOR CONT CARE)] [facility] ULTRASOUND, UTERUS, REAL TIME WITH IMAGE DOCUMENTATION, LIMITED (EG, HEART BEAT, PLACENTAL LOCATION, POSITION AND/OR QUALITATIVE AMNIOTIC FLUID VOLUME), 1 OR MORE FETUSES [facility] ULTRASOUND, UTERUS, REAL TIME WITH IMAGE DOCUMENTATION, LIMITED (EG, HEART BEAT, PLACENTAL LOCATION, POSITION AND/OR QUALITATIVE AMNIOTIC FLUID VOLUME), 1 OR MORE FETUSES [facility] IMMUNIZATION ADMINISTRATION (INCLUDES PERCUTANEOUS, INTRADERMAL, SUBCUTANEOUS, OR INTRAMUSCULAR INJECTIONS); EACH ADDITIONAL VACCINE (SINGLE OR COMBINATION VACCINE/TOXOID) [facility] SUBSEQ CARE VISIT () [EXCLS:PATIENTS WHO ARE SEEN FOR A CONDITION UNREL TO / CARE (EG,AN UP RESPIR INFECT;PATIENTS SEEN FOR CONSULTATION ONLY,NOT FOR CONT CARE)] [facility] SUBSEQ CARE VISIT () [EXCLS:PATIENTS WHO ARE SEEN FOR A CONDITION UNREL TO / CARE (EG,AN UP RESPIR INFECT;PATIENTS SEEN FOR CONSULTATION ONLY,NOT FOR CONT CARE)] [facility] SUBSEQ CARE VISIT () [EXCLS:PATIENTS WHO ARE SEEN FOR A CONDITION UNREL TO / CARE (EG,AN UP RESPIR INFECT;PATIENTS SEEN FOR CONSULTATION ONLY,NOT FOR CONT CARE)] [facility] INITIAL CARE VISIT (REPORT AT 1ST ENCOUN W HEALTH FISH STRAIGHTENER PROVIDING OBSTETRIC CARE. REPORT ALSO DATE OF VISIT &,IN A SEPARATE FIELD,THE DATE OF THE LAST MENSTRUAL PERIOD) [facility] INITIAL CARE VISIT (REPORT AT 1ST ENCOUN W HEALTH FISH STRAIGHTENER PROVIDING OBSTETRIC CARE. REPORT ALSO DATE OF VISIT &,IN A SEPARATE FIELD,THE DATE OF THE LAST MENSTRUAL PERIOD) [facility] Non-Physician Phone Call To Patient/Provider Brief (5-10min) Non-Physician Phone Call To Patient/Provider Brief (5-10min) [phone] SHIRAZ JAVIER [facility] Determination Of Refractive State Determination Of Refractive State [id number] KARISHMA PATE [facility] Ophthalmological New Patient Start Comprehensive Care Ophthalmological New Patient Start Comprehensive Care [id number] KARISHMA PATE [facility] Non-Physician Phone Call To Patient/Provider Brief (5-10min) Non-Physician Phone Call To Patient/Provider Brief (5-10min) [id number] [phone] NO MAYS [facility] Influenza Split Virus Vaccine IM Preserv Free 0.5mL Dosage Quadrivalent 016 NICHOLE WHITLEY Influenza Seasonal, injectable quadrivalent - preservative free; Series #: 1; .5 mL; IM; Left Arm; Mfg: BAASBOX; Lot: [id number]; VIS given (Hunter: 03/20/2015). [facility] Immunization Administration By Injection, One Vaccine Immunization Administration By Injection, One Vaccine [id number] 016 NICHOLE WHITLEY [facility] Skin Test Anergy Tuberculin Intradermal Skin Test Anergy Tuberculin Intradermal [id number] 015 REYNALDO KENT IPPD; Series #: 1; .1 mL; ID; Left Arm; Mfg: [employer]ENT[employer] PASTEUR; Lot: [id number]; VIS given. [facility] Screening Test Of Visual Acuity, Quantitative, Bilateral Screening Test Of Visual Acuity, Quantitative, Bilateral [id number] ETIENNE LEWIS [facility] Non-Physician Phone Call To Patient/Provider Brief (5-10min) Non-Physician Phone Call To Patient/Provider Brief (5-10min) [phone] HINA LUGO [facility] Obstetrical Services Care Visit Obstetrical Services Care Visit [id number] ALIDA PALOMINO Non-Stre Test (___ 0,2) Non-Stress Test (___ 0,2) 24852 014 ALIDA PALOMINO Non-Stre Test (___ 0,2) Non-Stress Test (___ 0,2) 44176 014 АНДРЕЙ VELOZ Ultrasound Obstetric Limited Evaluation Ultrasound Obstetric Limited Evaluation [id number] 014 АНДРЕЙ VELOZ OB Services Antepartum Care Only Subsequent Single Visit OB Services Antepartum Care Only Subsequent Single Visit [id number] 014 DERECK CARDONA [facility] Non-Stre Test (___ 0,2) Non-Stress Test (___ 0,2) 68764 014 АНДРЕЙ VELOZ [facility] Ultrasound Obstetric Limited Evaluation Ultrasound Obstetric Limited Evaluation 02802 АНДРЕЙ VELOZ [facility] OB Services Antepartum Care Only Subsequent Single Visit OB Services Antepartum Care Only Subsequent Single Visit [id number] 014 DERECK CARDONA [facility] OB Services Antepartum Care Only Subsequent Single Visit OB Services Antepartum Care Only Subsequent Single Visit [id number] 014 DERECK LANGSTON [facility] OB Services Antepartum Care Only Subsequent Single Visit OB Services Antepartum Care Only Subsequent Single Visit [id number] 014 SHIRAZ WOODWARD [facility] Ultrasound Obstetric Limited Evaluation Ultrasound Obstetric Limited Evaluation [id number] 014 SHIRAZ WOODWARD [facility] OB Services Antepartum Care Only Subsequent Single Visit OB Services Antepartum Care Only Subsequent Single Visit [id number] 014 SHIRAZ WOODWARD [facility] Ultrasound Obstetric Limited Evaluation Ultrasound Obstetric Limited Evaluation 20606 014 SHIRAZ WOODWARD [facility] Influenza Split Virus Vaccine IM Preserv Free 0.5mL Dosage Quadrivalent JAYE CUNNINGHAM Influenza Seasonal, injectable quadrivalent - preservative free (Flulaval); Series #: 1; .5 mL; IM; Left Arm; Mfg: BAASBOX; Lot: [id number]; VIS given (Hunter: 04/01/14). [facility] Tdap Vaccine Tdap Vaccine 86304 JAYE CUNNINGHAM Tdap; Series #: 1; .5 mL; IM; Left Arm; Mfg: BAASBOX; Lot: [id number]; VIS given (Hunter: 12/30/12). [facility] Immunization Administration By Injection, One Vaccine Immunization Administration By Injection, One Vaccine 97901 JAYE CUNNINGHAM [facility] Immunization Administration By Injection, Each Additional Vaccine Immunization Administration By Injection, Each Additional Vaccine 32350 JAYE CUNNINGHAM [facility] OB Services Antepartum Care Only Subsequent Single Visit OB Services Antepartum Care Only Subsequent Single Visit [id number] 014 SHIRAZ WOODWARD [facility] Ultrasound Obstetric Limited Evaluation Ultrasound Obstetric Limited Evaluation 56243 014 SHIRAZ WOODWARD [facility] OB Services Antepartum Care Only Subsequent Single Visit OB Services Antepartum Care Only Subsequent Single Visit [id number] 014 NELEIMA CRESPO [facility] OB Services Antepartum Care Only Subsequent Single Visit OB Services Antepartum Care Only Subsequent Single Visit [id number] 014 CORI PAREDES [facility] Ultrasound Obstetric Limited Evaluation Ultrasound Obstetric Limited Evaluation 37093 014 HARINI IBANEZ [facility] OB Services Antepartum Care Only First Visit, With Report OB Services Antepartum Care Only First Visit, With Report [id number] 014 HARINI IBANEZ [facility] OB Services Antepartum Care Only First Visit, With Report OB Services Antepartum Care Only First Visit, With Report 0500F 014 ETIENNE LEWIS [facility] Screening papanicolaou smear; obtaining, preparing and conveyance of cervical or vaginal smear to laboratory 013 STEPHANE YBARRA [facility] Fundus Photography Fundus Photography [id number] 05/10 013 RAY ELLSWORTH [facility] Determination Of Refractive State Determination Of Refractive State [id number] RAY ELLSWORTH [facility] Ophthalmological New Patient Start Comprehensive Care Ophthalmological New Patient Start Comprehensive Care [phone] RAY ELLSWORTH [facility] OB Services Antepartum Care Only First Visit, With Report OB Services Antepartum Care Only First Visit, With Report 0500F 012 ANTONIO COTE [facility] Screening papanicolaou smear; obtaining, preparing and conveyance of cervical or vaginal smear to laboratory 011 ALTA BECERRIL [facility] Social History Combined list of available smoking, tobacco, and other social history from [facility] of Defense and [facility] facilities. Social History Type Response Date Comment Sourc e This section is an empty social history section. [facility]
[2024-06-15 06:37] LABS: HPV Source Cervix; HPV, High Risk by TMA Not Detected
== END 2024-06-12 15:20 | disposition home or self-care (01) ==
PROVIDERS: PCP Physician Assistant Medical; Visit Provider Registered Nurse
DX: Z01.419 Encounter for gynecological examination (general) (routine) without abnormal findings (principal); E03.9 Hypothyroidism, unspecified; E66.9 Obesity, unspecified; Z12.4 Encounter for screening for malignant neoplasm of cervix; Z13.6 Encounter for screening for cardiovascular disorders; Z13.29 Encounter for screening for other suspected endocrine disorder
CPT/HCPCS: 80061; 84443; 87624; 87625; 88141; 88142

== ENCOUNTER 2025-05-19 15:47 | Outpatient (CLI) | payer OTHER, SELFPAY ==
--- NOTE | 2025-05-19 16:00 | CRLHL7_ITS ---
For Patients: As a result of the Century Cures Act, medical imaging exams and procedure reports are released immediately into your electronic medical record. You may view this report before your referring provider. If you have questions, please contact your health care provider. LMP: 03/18/2025. FANNY by LMP: 12/23/2025. GA: 8w, 6d. INDICATION: Dating and viability. CRL: 2.7 cm, 9w 3d, FANNY 12/19/2025. FHR: 178 bpm. GESTATIONAL SAC: 3.8 cm, appears within normal limits. YOLK SAC: 4.5 mm, appears within normal limits. RIGHT OVARY: Not visualized. LEFT OVARY: 4.1 x 2.7 x 3.3 cm. CL. IMPRESSION: 1. Single living intrauterine measures 9 weeks 3 days with a sonographic due date 12/19/2025. 2. Left inferior subchorionic hemorrhage measures 2.7 x 2.0 x 2.0 cm. 3. Simple left ovarian cyst measures 2.7 x 2.7 x 2.6 cm. Maxwell Puri M.D. Diagnostic Radiologist [email or web address] bM/Dictated by: Maxwell Puri MD @ 05/19/2025 8:41:00 PM (Electronically Signed)
== END 2025-05-19 15:48 | disposition home or self-care (01) ==
LOC: US 15:49
PROVIDERS: Visit Provider Physician Assistant
DX: O20.9 Hemorrhage in early pregnancy, unspecified (principal); O34.81 Maternal care for other abnormalities of pelvic organs, first trimester; N83.12 Corpus luteum cyst of left ovary; Z3A.09 9 weeks gestation of pregnancy
CPT/HCPCS: 76817; 83021; 84443; 86592; 86703; 86704; 86706; 86762; 86787; 86803; 86850; 87086; 87340; 87491; 87591

== ENCOUNTER 2025-05-19 16:44 | Outpatient (CLI) | payer OTHER, SELFPAY ==
[2025-05-19 22:18] LABS: Chlamydia DNA Amplified* NOT DETECTED (No Detected); GC DNA Amplified* NOT DETECTED (No Detected)
== END 2025-05-19 16:45 | disposition home or self-care (01) ==
PROVIDERS: Visit Provider Physician Assistant
DX: Z34.91 Encounter for supervision of normal pregnancy, unspecified, first trimester (principal); Z3A.08 8 weeks gestation of pregnancy
CPT/HCPCS: 83020; 83021; 84443; 85660; 86592; 86703; 86704; 86706; 86762; 86787; 86803; 86850; 87086; 87340; 87491; 87591

== ENCOUNTER 2025-08-11 08:44 | Outpatient (CLI) | payer OTHER, SELFPAY ==
--- NOTE | 2025-08-11 09:15 | CRLHL7_ITS ---
For Patients: As a result of the Century Cures Act, medical imaging exams and procedure reports are released immediately into your electronic medical record. You may view this report before your referring provider. If you have questions, please contact your health care provider. OB ULTRASOUND FANNY by LMP: 12/23/2025. GA: 20 w, 6 d. INDICATION: Encounter for supervision of normal . TECHNIQUE: Real time tavarez scale imaging of the fetus was performed. Transabdominal imaging performed. position: Breech. Cervix: Visualized. Technique: Transabdominal. Length of closed cervix: 4.1 cm. Placenta/cord: Placental position: Anterior. Right wall (bi-lobed). Technique: Transabdominal. Placenta tip to internal OS: 9.3 cm. Umbilical Cord: 3-vessel cord. Placenta insertion: Marginal (within 2 cm of placenta edge). Amniotic Fluid: 3.9 cm SDP (greater than/equal to: 2- less than 8 cm). SURVEY: Observed Structures. Calvarium/Spine: Cerebellum: 2.3 cm, 22 w 5 d. Cisterna Magna: 5.8 mm. Nuchal Fold: 3.4 mm. Lateral Ventricle: 5.5 mm. CSP: Yes. Midline Falx: Yes. Choroid Plexus: Yes. Spine: Yes. Abdomen: Stomach: Yes. Abd Cord Insertion: Yes. Urinary Bladder: Yes. Kidneys: Yes. Diaphragm: *See tech comment worksheet/impression. Face: Nose/lips: Yes. Orbital view: Yes. Profile: Yes. Limbs: Upper Extremities: Yes. Lower Extremities: Yes. Hands: *See tech comment worksheet/impression. Feet: *See tech comment worksheet/impression. Vascular: 4-Chamber Heart: *See tech comment worksheet/impression. LVOT: *See tech comment worksheet/impression. RVOT: *See tech comment worksheet/impression. 3VV: *See tech comment worksheet/impression. 3VTV: *See tech comment worksheet/impression. BPD: 4.8 cm. 20 w, 4 d, 38.5 percent. HC: 18.4 cm. 20 w, 6 d, 38 percent. AC: 16.1 cm. 21 w, 2 d, 55.7 percent. FL: 3.5 cm. 21 w, 1 d, 51.7 percent. heart rate: 154 bpm. age by this US: 21 w, 2 d. FANNY by this US: 12/20/2025. EFW: 401.3 g. Weight: - lbs, 14 oz. Percentile by FANNY: 60.1 percent. IMPRESSION: 1. Incomplete visualization of the heart views, feet, hands and diaphragm due to position. Remainder of the anatomic survey normal. Short-term follow up recommended. 2. A bilobed placenta appears to be present. The cord insertion is located near the edge of one of the placental lobes. This could be followed up in the third trimester or could consider maternal medicine consult. 3. Concordance of clinical and sonographic dating. Maxwell Puri M.D. Diagnostic Radiologist [email or web address] MORIAH/Dictated by: Maxwell Puri MD @ 08/11/2025 12:08:00 PM (Electronically Signed)
== END 2025-08-11 08:45 | disposition home or self-care (01) ==
LOC: US 08:45
PROVIDERS: Visit Provider Obstetrics & Gynecology
DX: O35.BXX0 Maternal care for other (suspected) fetal abnormality and damage, fetal cardiac anomalies, not applicable or unspecified (principal); O35.GXX0 Maternal care for other (suspected) fetal abnormality and damage, fetal upper extremities anomalies, not applicable or unspecified; O35.HXX0 Maternal care for other (suspected) fetal abnormality and damage, fetal lower extremities anomalies, not applicable or unspecified; Z3A.20 20 weeks gestation of pregnancy
CPT/HCPCS: 76805